=== PATIENT | male | born 1985 | race American Indian/Alaskan Native ===

== ENCOUNTER 2021-08-06 09:43 | Emergency (ER) | payer OTHER ==
--- NOTE | 2021-08-06 11:29 | XRay Report ---
RIGHT SHOULDER 3 VIEWS INDICATION / CLINICAL INFORMATION: Right shoulder pain and limited range of motion. COMPARISON: None available. FINDINGS: BONES / JOINT(S): The joint spaces are well-maintained. No significant arthritis. There is no evidenc e of fracture, subluxation or destructive lesion. SOFT TISSUES: No significant abnormality. ADDITIONAL FINDINGS: The visualized right lung is clear. IMPRESSION: No acute findings. Signer Name: Adam Cutler MD Signed: 08/06/2021 11:24 AM Workstation Name: [id number]
--- NOTE | 2021-08-06 11:29 | XRay Report ---
RIGHT ELBOW 3 VIEWS INDICATION / CLINICAL INFORMATION: Right elbow pain. COMPARISON: None available. FINDINGS: BONES / JOINT(S): There is mild spurring involving the coronoid process of the proximal ulna. There i s no evidence of acute fracture, subluxation, destructive lesion or joint effusion. SOFT TISSUES: No significant abnormality. ADDITIONAL FINDINGS: None. IMPRESSION: Mild degenerative change without acute abnormality. Signer Name: Adam Cutler MD Signed: 08/06/2021 11:25 AM Workstation Name: [id number]
[2021-08-06] MEDS ORDERED: TETANUS,DIPH,PERTUSS(ACELL) VACCINE 0.5 ML SYRINGE IM ONE (14:22)
[2021-08-06] MEDS ORDERED: KETOROLAC 10 MG TAB PO ONE (14:22)
[2021-08-06] MEDS ORDERED: ceFAZolin 1 GM VIAL IM ONE (14:22)
[2021-08-06] MEDS ORDERED: oxyCODONE /ACETAMINOPHEN 5-325MG TAB PO ONE (14:22)
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
--- NOTE | 2021-08-06 14:54 | XRay Report ---
Right hand, 3 views. HISTORY: Injury COMPARISON: None FINDINGS: There is an acute fracture involving the right fifth metacarpal neck. There is mild apex do rsal lateral angulation. No intra-articular involvement. No joint subluxation/dislocation. No additio nal fracture. Soft tissue swelling of the ulnar aspect of the hand. IMPRESSION: Acute mildly angulated fracture of the right fifth metacarpal neck. Signer Name: Faheem Burr MD Signed: 08/06/2021 2:50 PM Workstation Name: [id number]
[2021-08-06 17:06] VITALS: BP 138/96
== END 2021-08-06 17:05 | disposition home or self-care (01) ==
LOC: ED 09:43
DX: T14.8XXA Other injury of unspecified body region, initial encounter (principal); S62.336A Displaced fracture of neck of fifth metacarpal bone, right hand, initial encounter for closed fracture; M25.511 Pain in right shoulder; M25.521 Pain in right elbow; Z91.030 Bee allergy status; V89.2XXA Person injured in unspecified motor-vehicle accident, traffic, initial encounter; Y93.89 Activity, other specified; Y92.89 Other specified places as the place of occurrence of the external cause; Y99.8 Other external cause status; F17.290 Nicotine dependence, other tobacco product, uncomplicated
CPT/HCPCS: 29125; 73030; 73080; 73130; 90471; 90715; 96372; 99284; J0690